=== PATIENT | female | born 1990 | race Caucasian/White ===

== ENCOUNTER 2021-06-18 15:06 | Inpatient (IN) ==
[2021-06-18 16:54] LABS: Appearance Urine Cloudy (Clear); Bacteria Urine Automated Negative (Negative); Bilirubin Urine Negative (Negative); Blood Urine Negative (Negative); Color Urine Dark Yellow; Epithelial Cell Urine Auto >30 /lpf (0-5); Glucose Urine UA Negative (Negative); Ketones Urine 1+ (Negative); Leukocyte Esterase Urine Negative (Negative); Nitrite Urine Negative (Negative); Protein Urine Trace (Negative); Specific Gravity Urine 1.026 (1.000-1.030); Urobilinogen Urine Negative (Negative)
[2021-06-18 17:01] LABS: Basophils # (auto) 0.02 K/uL (0-0.2); Basophils % (auto) 0.2 %; Eosinophils # (auto) 0.17 K/uL (0-0.5); Eosinophils % (auto) 2.1 %; Hematocrit (blood only) 38.1 % (37-47); Hemoglobin 12.7 g/dL (12.0-16.0); Immature Granulocytes # (auto) 0.01 K/uL (0.00-0.02); Immature Granulocytes % (auto) 0.1 %; Lymphocytes # (auto) 1.84 K/uL (1.2-3.4); Lymphocytes % (auto) 22.2 %; Mean Corpuscular Hgb Conc 33.3 g/dL (32-36); Mean Platelet Volume 8.9 fL (7.4-10.4); Monocytes # (auto) 0.65 K/uL (0.11-0.59); Monocytes % (auto) 7.9 %; Neutrophils # (auto) 5.58 K/uL (1.4-6.5); Neutrophils % (auto) 67.5 %; Platelet Count 337 K/uL (130-400); RDW Coefficient of Variation 13.1 % (11.5-14.5); RDW Standard Deviation 45.9 fL (36.4-46.3); Red Blood Count 3.97 M/uL (4.2-5.4); White Blood Count 8.27 K/uL (4.8-10.8)
[2021-06-18 17:10] LABS: Amphetamines+Metham, Urine Neg (Neg); Barbiturates, Urine Neg (Neg); Benzodiazepine, Urine Neg (Neg); Cocaine, Urine Neg (Neg); MDMA (Ecstacy), Urine Neg (Neg); Methadone, Urine Neg (Neg); Opiate, Urine Neg (Neg); Phencyclidine, Urine Neg (Neg)
[2021-06-18 17:19] LABS: Albumin Level 3.8 gm/dl (3.4-5.0); BUN Creatinine Ratio 12.3 (10-20); Calcium 8.8 mg/dl (8.5-10.1); Creatinine Clr Calc Pharmacy 106.6 ml/min; Est GFR (African American) 106.6 ml/min; Est GFR (Non-African American) 91.9 ml/min; Potassium 4.2 mmol/L (3.5-5.1)
[2021-06-18 17:21] LABS: Acetaminophen < 2 ug/ml (10-30); Salicylate < 1.7 mg/dl (2.8-20)
--- NOTE | 2021-06-18 17:23 | Emergency Department Note ---
History of Present Illness General Chief complaint: Mental Health Evaluation Stated complaint: DEPRESSIVE EPISODE, DX'D BIPOLAR Time Seen by Provider: 06/18/21 15:34 Source: patient Mode of arrival: ambulatory Limitations: no limitations History of Present Illness Provider complaint: Mental health evaluation This is a 30-year-old female presents emergency department for mental health evaluation. Patient states she does have a history of bipolar disorder and does take medication as well see outpatient providers. She feels that she has had worsening depression with this recently with wanting to sleep more, lack of energy, anhedonia. She states they have been increasing her medications recently however she does not feel this has been helping. She denies SI or HI. Denies paranoia or hallucinations. Denies any recent injury or illness. 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 Pt seen during a time of high acuity and national emergency pandemic while wearing PPE. Home Medications Medication Instructions Recorded Confirmed Type lurasidone 80 mg tablet (Latuda) 80 mg PO HS 06/18/21 06/18/21 History modafinil 200 mg tablet 200 mg PO QAM 06/18/21 06/18/21 History Allergies Allergy/AdvReac Type Severity Reaction Status Date / Time No Known Allergies Allergy Unverified 06/18/21 17:24 Past Med/Surg History Medical History Bipolar disorder Social History Smoking Status: Never smoker Preferred Language: Albanian Communication Ability: Effective [employer] Required: No Beliefs That Will Affect Care: None Feels Safe at Home: Yes Assistive Devices: None Review of Systems A total of 10 systems reviewed and were otherwise negative All systems reviewed & are unremarkable except as noted in HPI & below Physical Exam Vital Signs Vital Signs - 24 hr 06/18/21 15:06 06/18/21 15:24 Temperature 36.6 C Temperature Source Temporal Artery Scan Pulse Rate 84 Respiratory Rate 16 18 Respiratory Effort / Characteristics Non-Labored Respiratory Depth Normal Normal Respiratory Pattern Regular Blood Pressure 117/74 Blood Pressure Mean 88 Pulse Oximetry 98 Oxygen Delivery Method Room Air Sepsis Recent Fever Within 48 Hours No Sepsis New/Unexplained Change in Mental Status No Sepsis Action Taken by Nursing No Action Required GENERAL: alert, well appearing, well nourished, no distress, non-toxic EYE EXAM: normal conjunctiva, PERRL and EOM's grossly intact OROPHARYNX: no exudate, no erythema, lips, buccal mucosa, and tongue normal and mucous membranes are moist NECK: supple, no nuchal rigidity, no adenopathy, non-tender LUNGS: Clear to auscultation. Normal chest wall mechanics, no w/r/r HEART: no murmurs, S1 normal and S2 normal ABDOMEN: abdomen soft, non-tender, normo-active bowel sounds, no masses, no re bound or guarding. BACK: Back is symmetrical on inspection and there is no deformity, no midline te nderness, no CVA tenderness. SKIN: no rashes and no bruising UPPER EXTREMITIES: upper extremities are grossly normal. FROM, nml pulses b/l. LOWER EXTREMITIES: No pitting edema. FROM, nml pulses b/l. NEURO EXAM: Normal sensorium, cranial nerves II-XII grossly intact, normal speech, no gross weakness of arms, no gross weakness of legs. Gross sensation intact. Course Course 1919: Patient referred to [facility] who came and saw the patient. Patient agreement with plan for inpatient treatment. 201 signed. Administered Medications Hydroxyzine HCl (Hydroxyzine Hcl 25 Mg Tab) 50 mg PO HSZ PRN PRN Reason: Insomnia Stop: 07/18/21 18:28 Last Admin: 06/18/21 22:01 Dose: 50 mg Documented by: [id number] Lurasidone HCl (Lurasidone Hcl 40 Mg Tab) 80 mg PO DAILY YANG Stop: 07/18/21 19:29 Last Admin: 06/18/21 20:16 Dose: 80 mg Documented by: [id number] Discontinued Medications Influenza Virus Vaccine Quadrival (Fluarix Quadrivalent 0.5 Ml Syr) 0.5 ml IM .ONCE ONE Stop: 06/18/21 21:08 Last Admin: 06/18/21 21:56 Dose: 0.5 ml Documented by: [id number] Lorazepam (Lorazepam 0.5 Mg Tab) 0.5 mg PO NOW STA Stop: 06/18/21 17:45 Last Admin: 06/18/21 17:48 Dose: 0.5 mg Documented by: [id number] Medical Decision Making Differential Diagnosis Differential diagnoses considered include mood disorder, infection, hypoglycemia, electrolyte abnormalities, cardiac sources, intracerebral event, toxicologic, neurologic, as well as others. Medical Records Attestation: I reviewed the patient's medical records. Home Medications Current Medication List: was personally reviewed by me Laboratory Data Attestation: I reviewed the patient's lab results. Result diagrams: 06/18/21 16:50 06/18/21 16:50 Lab Results 06/18/21 06/18/21 06/18/21 Range/Units 16:37 16:40 16:40 WBC (4.8-10.8) K/uL RBC (4.2-5.4) M/uL Hgb (12.0-16.0) g/dL Hct (37-47) % MCV (80-100) fL MCH (25-34) pg MCHC (32-36) g/dL RDW Std Deviation (36.4-46.3) fL RDW Coeff of Ina (11.5-14.5) % Plt Count (130-400) K/uL MPV (7.4-10.4) fL Immature Gran % (Auto) % Neut % (Auto) % Lymph % (Auto) % Douglas % (Auto) % Eos % (Auto) % Baso % (Auto) % Neut # (Auto) (1.4-6.5) K/uL Lymph # (Auto) (1.2-3.4) K/uL Douglas # (Auto) (0.11-0.59) K/uL Eos # (Auto) (0-0.5) K/uL Baso # (Auto) (0-0.2) K/uL Immature Gran # (Auto) (0.00-0.02) K/uL Sodium (136-145) mmol/L Potassium (3.5-5.1) mmol/L Chloride (98-107) mmol/L Carbon Dioxide (21-32) mmol/L Anion Gap (3-11) BUN (7-18) mg/dl Creatinine (0.6-1.2) mg/dl Est Cr Clr Drug Dosing ml/min Est GFR ( Amer) ml/min Est GFR (Non-Af Amer) ml/min BUN/Creatinine Ratio (10-20) Glucose (70-99) mg/dl Calcium (8.5-10.1) mg/dl Total Bilirubin (0.2-1) mg/dl AST (15-37) U/L ALT (12-78) Alkaline Phosphatase (45-117) U/L Total Protein (6.4-8.2) gm/dl Albumin (3.4-5.0) gm/dl Globulin (2.5-4.0) gm/dl Albumin/Globulin Ratio (0.9-2) TSH (0.300-4.500) uIu/ml HCG, Qual (Negative) Urine Color Dark Yellow Urine Appearance Cloudy A (Clear) Urine pH 6.0 (4.5-7.5) Ur Specific [place] 1.026 (1.000-1.030) Urine Protein Trace H (Negative) Urine Glucose (UA) Negative (Negative) Urine Ketones 1+ H (Negative) Urine Blood Negative (Negative) Urine Nitrite Negative (Negative) Urine Bilirubin Negative (Negative) Urine Urobilinogen Negative (Negative) Ur Leukocyte Esterase Negative (Negative) Urine WBC (Auto) 1-5 (0-5) /hpf Urine RBC (Auto) 5-10 H (0-4) /hpf U Hyaline Cast (Auto) 5-10 H (0-5) /lpf U Epithel Cells (Auto) >30 H (0-5) /lpf Urine Bacteria (Auto) Negative (Negative) Salicylates (2.8-20) mg/dl Urine Opiates Screen Neg (Neg) Ur Methadone, Qual Neg (Neg) Acetaminophen (10-30) ug/ml Urine Barbiturates Neg (Neg) Ur Phencyclidine (PCP) Neg (Neg) U Amphetamin/Meth Scrn Neg (Neg) MDMA (Ecstasy) Screen Neg (Neg) U Benzodiazepines Scrn Neg (Neg) Ur Cocaine Metabolite Neg (Neg) U Marijuana (THC) Screen Neg (Neg) Ethyl Alcohol mg/dL (0-3) mg/dl SARS-CoV-2, RNA, NAAT NEGATIVE (NEGATIVE) 06/18/21 06/18/21 06/18/21 Range/Units 16:50 16:50 16:50 WBC 8.27 (4.8-10.8) K/uL RBC 3.97 L (4.2-5.4) M/uL Hgb 12.7 (12.0-16.0) g/dL Hct 38.1 (37-47) % MCV 96.0 (80-100) fL MCH 32.0 (25-34) pg MCHC 33.3 (32-36) g/dL RDW Std Deviation 45.9 (36.4-46.3) fL RDW Coeff of Ina 13.1 (11.5-14.5) % Plt Count 337 (130-400) K/uL MPV 8.9 (7.4-10.4) fL Immature Gran % (Auto) 0.1 % Neut % (Auto) 67.5 % Lymph % (Auto) 22.2 % Douglas % (Auto) 7.9 % Eos % (Auto) 2.1 % Baso % (Auto) 0.2 % Neut # (Auto) 5.58 (1.4-6.5) K/uL Lymph # (Auto) 1.84 (1.2-3.4) K/uL Douglas # (Auto) 0.65 H (0.11-0.59) K/uL Eos # (Auto) 0.17 (0-0.5) K/uL Baso # (Auto) 0.02 (0-0.2) K/uL Immature Gran # (Auto) 0.01 (0.00-0.02) K/uL Sodium 139 (136-145) mmol/L Potassium 4.2 (3.5-5.1) mmol/L Chloride 110 H (98-107) mmol/L Carbon Dioxide 26 (21-32) mmol/L Anion Gap 3.0 (3-11) BUN 10 (7-18) mg/dl Creatinine 0.85 (0.6-1.2) mg/dl Est Cr Clr Drug Dosing 106.6 ml/min Est GFR ( Amer) 106.6 ml/min Est GFR (Non-Af Amer) 91.9 ml/min BUN/Creatinine Ratio 12.3 (10-20) Glucose 87 (70-99) mg/dl Calcium 8.8 (8.5-10.1) mg/dl Total Bilirubin 0.3 (0.2-1) mg/dl AST 8 L (15-37) U/L ALT 22 (12-78) Alkaline Phosphatase 51 (45-117) U/L Total Protein 7.3 (6.4-8.2) gm/dl Albumin 3.8 (3.4-5.0) gm/dl Globulin 3.5 (2.5-4.0) gm/dl Albumin/Globulin Ratio 1.1 (0.9-2) TSH 0.484 (0.300-4.500) uIu/ml HCG, Qual (Negative) Urine Color Urine Appearance (Clear) Urine pH (4.5-7.5) Ur Specific [place] (1.000-1.030) Urine Protein (Negative) Urine Glucose (UA) (Negative) Urine Ketones (Negative) Urine Blood (Negative) Urine Nitrite (Negative) Urine Bilirubin (Negative) Urine Urobilinogen (Negative) Ur Leukocyte Esterase (Negative) Urine WBC (Auto) (0-5) /hpf Urine RBC (Auto) (0-4) /hpf U Hyaline Cast (Auto) (0-5) /lpf U Epithel Cells (Auto) (0-5) /lpf Urine Bacteria (Auto) (Negative) Salicylates < 1.7 L (2.8-20) mg/dl Urine Opiates Screen (Neg) Ur Methadone, Qual (Neg) Acetaminophen < 2 L (10-30) ug/ml Urine Barbiturates (Neg) Ur Phencyclidine (PCP) (Neg) U Amphetamin/Meth Scrn (Neg) MDMA (Ecstasy) Screen (Neg) U Benzodiazepines Scrn (Neg) Ur Cocaine Metabolite (Neg) U Marijuana (THC) Screen (Neg) Ethyl Alcohol mg/dL (0-3) mg/dl SARS-CoV-2, RNA, NAAT (NEGATIVE) 06/18/21 06/18/21 Range/Units 16:50 16:50 WBC (4.8-10.8) K/uL RBC (4.2-5.4) M/uL Hgb (12.0-16.0) g/dL Hct (37-47) % MCV (80-100) fL MCH (25-34) pg MCHC (32-36) g/dL RDW Std Deviation (36.4-46.3) fL RDW Coeff of Ina (11.5-14.5) % Plt Count (130-400) K/uL MPV (7.4-10.4) fL Immature Gran % (Auto) % Neut % (Auto) % Lymph % (Auto) % Douglas % (Auto) % Eos % (Auto) % Baso % (Auto) % Neut # (Auto) (1.4-6.5) K/uL Lymph # (Auto) (1.2-3.4) K/uL Douglas # (Auto) (0.11-0.59) K/uL Eos # (Auto) (0-0.5) K/uL Baso # (Auto) (0-0.2) K/uL Immature Gran # (Auto) (0.00-0.02) K/uL Sodium (136-145) mmol/L Potassium (3.5-5.1) mmol/L Chloride (98-107) mmol/L Carbon Dioxide (21-32) mmol/L Anion Gap (3-11) BUN (7-18) mg/dl Creatinine (0.6-1.2) mg/dl Est Cr Clr Drug Dosing ml/min Est GFR ( Amer) ml/min Est GFR (Non-Af Amer) ml/min BUN/Creatinine Ratio (10-20) Glucose (70-99) mg/dl Calcium (8.5-10.1) mg/dl Total Bilirubin (0.2-1) mg/dl AST (15-37) U/L ALT (12-78) Alkaline Phosphatase (45-117) U/L Total Protein (6.4-8.2) gm/dl Albumin (3.4-5.0) gm/dl Globulin (2.5-4.0) gm/dl Albumin/Globulin Ratio (0.9-2) TSH (0.300-4.500) uIu/ml HCG, Qual Negative (Negative) Urine Color Urine Appearance (Clear) Urine pH (4.5-7.5) Ur Specific [place] (1.000-1.030) Urine Protein (Negative) Urine Glucose (UA) (Negative) Urine Ketones (Negative) Urine Blood (Negative) Urine Nitrite (Negative) Urine Bilirubin (Negative) Urine Urobilinogen (Negative) Ur Leukocyte Esterase (Negative) Urine WBC (Auto) (0-5) /hpf Urine RBC (Auto) (0-4) /hpf U Hyaline Cast (Auto) (0-5) /lpf U Epithel Cells (Auto) (0-5) /lpf Urine Bacteria (Auto) (Negative) Salicylates (2.8-20) mg/dl Urine Opiates Screen (Neg) Ur Methadone, Qual (Neg) Acetaminophen (10-30) ug/ml Urine Barbiturates (Neg) Ur Phencyclidine (PCP) (Neg) U Amphetamin/Meth Scrn (Neg) MDMA (Ecstasy) Screen (Neg) U Benzodiazepines Scrn (Neg) Ur Cocaine Metabolite (Neg) U Marijuana (THC) Screen (Neg) Ethyl Alcohol mg/dL < 3.0 (0-3) mg/dl SARS-CoV-2, RNA, NAAT (NEGATIVE) MDM Narrative This is a well-appearing 30-year-old female with a history of bipolar disorder who presents due to increased depressive symptoms. Patient denies SI or HI, however feels she is failing outpatient treatment as her medications have been adjusted recently and she does see a therapist on a regular basis. 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 Patient wishing for inpatient treatment at this time. Patient seen and evaluated by case management and referred to [facility] They did come and evaluate the patient and she was accepted there. 201 signed by me. Patient's labs and urinalysis are reassuring. Patient had no other concerns for physical complaints or injury. Impression & Plan Depression, Bipolar disorder Discharge Plan Visit Data Chief Complaint: Mental Health Evaluation Stated Complaint: DEPRESSIVE EPISODE, DX'D BIPOLAR ED Provider: Zita Loomis Discharge Problem: Depression, Bipolar disorder Patient Disposition: Admitted As Inpatient Condition: Good Discharge Instructions Interventions: ED Discharge Assessment Last Done: 06/18/21 19:31
[2021-06-18 17:30] LABS: Albumin Globulin Ratio 1.1 (0.9-2); Bilirubin,Total 0.3 mg/dl (0.2-1); Globulin 3.5 gm/dl (2.5-4.0); Thyroid Stimulating Hormone 0.484 uIu/ml (0.300-4.500); Total Protein 7.3 gm/dl (6.4-8.2)
[2021-06-18 17:36] LABS: Pregnancy Test, Serum Negative (Negative)
[2021-06-18] MEDS ORDERED: LORazepam 0.5 MG TAB PO STA (17:44)
[2021-06-18] MEDS ORDERED: hydrOXYzine HCl 25 MG TAB PO PRN (18:29)
[2021-06-18] MEDS ORDERED: MAGNESIUM HYDROXIDE SUSP 30 ML UDC PO PRN (18:29)
[2021-06-18] MEDS ORDERED: SODIUM CHLORIDE 0.65% NA SOLN 45 ML (OCEAN) PRN (18:29)
[2021-06-18] MEDS ORDERED: BISMUTH SUBSALICYLATE LIQD 236 ML PO PRN (18:29)
[2021-06-18] MEDS ORDERED: ALUMINUM/MAGNESIUM SUSP 30 ML UDC PO PRN (18:29)
[2021-06-18] MEDS ORDERED: ACETAMINOPHEN 325 MG TAB PO PRN (18:29)
[2021-06-18] MEDS: LURASIDONE HCL 40 MG TAB PO SCH (20:16)
[2021-06-18] MEDS ORDERED: FLUARIX QUADRIVALENT 0.5 ML SYR IM ONE (21:07)
[2021-06-18] MEDS: hydrOXYzine HCl 25 MG TAB PO PRN (22:01)
[2021-06-19] MEDS ORDERED: FLUoxetine HCL 10 MG CAP PO STA (10:47)
[2021-06-19] MEDS: LURASIDONE HCL 40 MG TAB PO SCH ×2 (11:02→21:04)
[2021-06-19] MEDS: modafiniL 100 MG TAB PO SCH (11:31)
--- NOTE | 2021-06-19 15:21 | History & Physical ---
Date of Service June 19, 2021 Impression / Recommendations Impression 30 yo female with a history of anxiety and depression, previously diagnosed with borderline personality disorder as well as bipolar disorder, does not endorse periods of manish but some increase in reactivity/impulsivity alternating with obsessive thoughts and preoccupation, for example on SI but also idea that she will be homeless if "can't keep it together". (1) Bipolar disorder: Active/Remission status: currently active Current bipolar episode type: depressed Current episode severity: moderate Qualified Code(s): F31.32 - Bipolar disorder, current episode depressed, moderate (2) Generalized anxiety disorder: The patient was admitted to the [facility] ([facility] health unit) on q15 min checks (behavioral with suicide precautions) for safety. The patient will participate in group, recreational, and milieu therapies and will be offered additional individual and family sessions as clinically appropriate. Risks/benefits/alternatives reviewed re: her current medications. Patient aware of need for monitoring for TD and metabolic issues with Latuda. Fasting labs for the am. Will continue Modafinil for now, aware is off label medication but need to coordinate with outpatient provider and determine tolerability of Prozac. Reviewed that SSRI are generally weight neutral and chosen as her primary complaints are low energy. Given her level of anxiety and obsessiveness concern that Wellbutrin may be too activating. Patient asked several questions about 72 hour notice and agrees to continued hospitalization at this time. 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 Chief Complaint "yeah I've just been more depressed and not functioning well, my providers thought I should come in". History of Present Illness Lyric denies having a specific plan or intent to harm herself but feels that her anxiety gets obsessive at times and she has had more recent passive wish. She noticed similar but not as severe symptoms last fall, "like it's a pattern". He hasn't been able to focus and is sleeping more/severely fatigued despite taking Provigil. She denies a history of narcolepsy and states that she takes medication for symptoms related to depression. When she first started the medication she felt she functioned well and was able to focus. She denies any history of ADHD diagnosis or significant concerns in undergrad. She related some history of self injurious behavior and recently made some scratches to her abdomen with a pocket knife. She also reports poor appetite related to stress with 60 lbs "not particularly intentional" weight loss since starting graduate school last year. She admits this could be related to side effects of Provigil. She was previously diagnosed with "C-PTSD", generalized anxiety, and borderline personality disorder prior to entering treatment with [facility]. Her Latuda dose was increased on 06/15 so unsure if working yet. She also notes taking Accutane early in 2020. Otherwise, has some amblivalence continuing hospitalization given time of the semester and how she was reportedly treated in the ED stating that she was unaware she couldn't have her phone until after she signed in and that her meal tray was delayed as misrepresented she had eaten in the ED. Past Psychiatric History Current Psychiatric Diagnosis: Bipolar Disorder Outpatient Services: currently Dr. Rosales, previously 2-3 therapists prior to grad student here [facility] for med management Previous Psych Admissions: none Do You Have Access To A Gun?: No History of Previous Suicide Attempt: No Past Medication Trials: Zoloft prior to Effexor XR, then lamictal (acne) prior to Latuda. Allergies Allergy/AdvReac Type Severity Reaction Status Date / Time No Known Allergies Allergy Unverified 06/18/21 17:24 Home Medications Medication Instructions Recorded Confirmed Type lurasidone 80 mg tablet (Latuda) 80 mg PO HS 06/18/21 06/18/21 History modafinil 200 mg tablet 100 mg PO QAM 06/18/21 06/19/21 History Family History Family Mental Health History Comment: mom and brother (mom depression, brother bipolar) Alcohol History Hx of Alcohol Use Over the Past 12 Months: No AUDIT Total Score: 0 Smoking Use Have You Smoked or Used Tobacco Products in the Last 30 Days: No Smoking Status: Never smoker Substance History Hx of Prescription Med Misuse Over the Past 12 Months: No Hx of Over the Counter Med Misuse Over the Past 12 Months: No Hx of Inhalent Misuse Over the Past 12 Months: No Hx of Organic Substance Use Over the Past 12 Months: No Hx of Illegal Substances/Street Drug Use Over Past 12 Months: No Problems as a Result of Past Substance Use: None Identified Personal History Living Arrangements: Apartment Childhood: states that mother is alive, relationship is "fine over the phone", brother is 45 years old, parents 2nd marriage and father had other children who were adopted that she doesn't know. 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) Marital Status: Single Number Of Children: 0 Beliefs That Will Affect Care: None Current Legal Problems: No Additional Comments: did not elaborate on past trauma Patient History Medical History Bipolar disorder Social History Smoking Status: Never smoker Preferred Language: Mozambican Communication Ability: Effective Watchstander Required: No Beliefs That Will Affect Care: None Feels Safe at Home: Yes Assistive Devices: None Review of Systems Review of Systems: All systems reviewed & are unremarkable except as noted in HPI & below Physical Exam Psychiatric: Orientation: alert and oriented x 3 Apperance: appropriately dressed and appropriately groomed Eye Contact: good eye contact Motor Behavior: no abnormal motor movements Speech: normal rate/rhythm/volume of s peech Affect: + depressed affect Mood: + depressed mood Thought Process: goal directed thought process Thought Content: reality based without delusions Suicidal Thoughts: denies suicidal plan and denies suicidal intent; + reports suicidal thoughts (passive, intermittent) Homicidal Thoughts: denies homicidal thoughts Hallucinations: no auditory hallucinations and no visual hallucinations Cognition: attention grossly intact and language grossly intact Estimated Intelligence: consistent with education level Insight: + limited insight Judgement: + limited judgement Vital Signs (Past 24 Hours): Last Vital Signs Temp 36.6 C 06/19/21 06:51 Pulse 93 H 06/19/21 06:52 Resp 16 06/19/21 06:51 BP 111/76 06/19/21 06:52 Pulse Ox 98 06/18/21 15:24 Exam Statement: A physical exam was performed in the ED by Dr. Loomis for the purposes of medical clearance. I accept that physical as correct and adequate for the purposes of the inpatient physical exam. Results & Data ([facility]) Laboratory Results Laboratory Results - last 24 hr 06/18/21 06/18/21 06/18/21 16:37 16:40 16:40 WBC RBC Hgb Hct MCV MCH MCHC RDW Std Deviation RDW Coeff of Ina Plt Count MPV Immature Gran % (Auto) Neut % (Auto) Lymph % (Auto) [place] % (Auto) Eos % (Auto) Baso % (Auto) Neut # (Auto) Lymph # (Auto) [place] # (Auto) Eos # (Auto) Baso # (Auto) Immature Gran # (Auto) Sodium Potassium Chloride Carbon Dioxide Anion Gap BUN Creatinine Est Cr Clr Drug Dosing Est GFR ( Amer) Est GFR (Non-Af Amer) BUN/Creatinine Ratio Glucose Calcium Total Bilirubin AST ALT Alkaline Phosphatase Total Protein Albumin Globulin Albumin/Globulin Ratio TSH HCG, Qual Urine Color Dark Yellow Urine Appearance Cloudy A Urine pH 6.0 Ur Specific [place] 1.026 Urine Protein Trace H Urine Glucose (UA) Negative Urine Ketones 1+ H Urine Blood Negative Urine Nitrite Negative Urine Bilirubin Negative Urine Urobilinogen Negative Ur Leukocyte Esterase Negative Urine WBC (Auto) 1-5 Urine RBC (Auto) 5-10 H U Hyaline Cast (Auto) 5-10 H U Epithel Cells (Auto) >30 H Urine Bacteria (Auto) Negative Salicylates Urine Opiates Screen Neg Ur Methadone, Qual Neg Acetaminophen Urine Barbiturates Neg Ur Phencyclidine (PCP) Neg U Amphetamin/Meth Scrn Neg MDMA (Ecstasy) Screen Neg U Benzodiazepines Scrn Neg Ur Cocaine Metabolite Neg U Marijuana (THC) Screen Neg Ethyl Alcohol mg/dL SARS-CoV-2, RNA, NAAT NEGATIVE 06/18/21 06/18/21 06/18/21 16:50 16:50 16:50 WBC 8.27 RBC 3.97 L Hgb 12.7 Hct 38.1 MCV 96.0 MCH 32.0 MCHC 33.3 RDW Std Deviation 45.9 RDW Coeff of Nia 13.1 Plt Count 337 MPV 8.9 Immature Gran % (Auto) 0.1 Neut % (Auto) 67.5 Lymph % (Auto) 22.2 [place] % (Auto) 7.9 Eos % (Auto) 2.1 Baso % (Auto) 0.2 Neut # (Auto) 5.58 Lymph # (Auto) 1.84 [place] # (Auto) 0.65 H Eos # (Auto) 0.17 Baso # (Auto) 0.02 Immature Gran # (Auto) 0.01 Sodium 139 Potassium 4.2 Chloride 110 H Carbon Dioxide 26 Anion Gap 3.0 BUN 10 Creatinine 0.85 Est Cr Clr Drug Dosing 106.6 Est GFR ( Amer) 106.6 Est GFR (Non-Af Amer) 91.9 BUN/Creatinine Ratio 12.3 Glucose 87 Calcium 8.8 Total Bilirubin 0.3 AST 8 L ALT 22 Alkaline Phosphatase 51 Total Protein 7.3 Albumin 3.8 Globulin 3.5 Albumin/Globulin Ratio 1.1 TSH 0.484 HCG, Qual Urine Color Urine Appearance Urine pH Ur Specific [place] Urine Protein Urine Glucose (UA) Urine Ketones Urine Blood Urine Nitrite Urine Bilirubin Urine Urobilinogen Ur Leukocyte Esterase Urine WBC (Auto) Urine RBC (Auto) U Hyaline Cast (Auto) U Epithel Cells (Auto) Urine Bacteria (Auto) Salicylates < 1.7 L Urine Opiates Screen Ur Methadone, Qual Acetaminophen < 2 L Urine Barbiturates Ur Phencyclidine (PCP) U Amphetamin/Meth Scrn MDMA (Ecstasy) Screen U Benzodiazepines Scrn Ur Cocaine Metabolite U Marijuana (THC) Screen Ethyl Alcohol mg/dL SARS-CoV-2, RNA, NAAT 06/18/21 06/18/21 16:50 16:50 WBC RBC Hgb Hct MCV MCH MCHC RDW Std Deviation RDW Coeff of Ina Plt Count MPV Immature Gran % (Auto) Neut % (Auto) Lymph % (Auto) [place] % (Auto) Eos % (Auto) Baso % (Auto) Neut # (Auto) Lymph # (Auto) [place] # (Auto) Eos # (Auto) Baso # (Auto) Immature Gran # (Auto) Sodium Potassium Chloride Carbon Dioxide Anion Gap BUN Creatinine Est Cr Clr Drug Dosing Est GFR ( Amer) Est GFR (Non-Af Amer) BUN/Creatinine Ratio Glucose Calcium Total Bilirubin AST ALT Alkaline Phosphatase Total Protein Albumin Globulin Albumin/Globulin Ratio TSH HCG, Qual Negative Urine Color Urine Appearance Urine pH Ur Specific [place] Urine Protein Urine Glucose (UA) Urine Ketones Urine Blood Urine Nitrite Urine Bilirubin Urine Urobilinogen Ur Leukocyte Esterase Urine WBC (Auto) Urine RBC (Auto) U Hyaline Cast (Auto) U Epithel Cells (Auto) Urine Bacteria (Auto) Salicylates Urine Opiates Screen Ur Methadone, Qual Acetaminophen Urine Barbiturates Ur Phencyclidine (PCP) U Amphetamin/Meth Scrn MDMA (Ecstasy) Screen U Benzodiazepines Scrn Ur Cocaine Metabolite U Marijuana (THC) Screen Ethyl Alcohol mg/dL < 3.0 SARS-CoV-2, RNA, NAAT Current Inpatient Medications Current Inpatient Medications: Current Inpatient Medications Acetaminophen (Acetaminophen 325 Mg Tab) 650 mg PO Q4H PRN PRN Reason: Headache or Minor Fever Stop: 07/18/21 18:28 Al Hydrox/Mg Hydrox/Simethicone (Aluminum/Magnesium Susp 30 Ml Udc) 30 ml PO Q4H PRN PRN Reason: GI Upset Stop: 07/18/21 18:28 Bismuth Subsalicylate (Bismuth Subsalicylate Liqd 236 Ml) 15 ml PO PRN PRN PRN Reason: Loose Stool Stop: 07/18/21 18:28 Fluoxetine HCl (Fluoxetine Hcl 20 Mg Cap) 20 mg PO QAM [facility] Stop: 07/20/21 08:59 Hydroxyzine HCl (Hydroxyzine Hcl 25 Mg Tab) 50 mg PO HSZ PRN PRN Reason: Insomnia Stop: 07/18/21 18:28 Last Admin: 06/18/21 22:01 Dose: 50 mg Documented by: Hydroxyzine HCl (Hydroxyzine Hcl 25 Mg Tab) 25 mg PO Q4H PRN PRN Reason: Anxiety Stop: 07/18/21 18:28 Lurasidone HCl (Lurasidone Hcl 40 Mg Tab) 80 mg PO HS YANG Stop: 07/19/21 21:59 Magnesium Hydroxide (Magnesium Hydroxide Susp 30 Ml Udc) 30 ml PO DAILY PRN PRN Reason: Constipation Stop: 07/18/21 18:28 Modafinil (Modafinil 100 Mg Tab) [facility] [place] Stop: 07/19/21 10:59 Last Admin: 06/19/21 11:31 Dose: 100 mg Documented by: Sodium Chloride (Sodium Chloride 0.65% Na Soln 45 Ml ([place])) 1 - 2 sprays NA PRN PRN PRN Reason: Nasal Dryness/Congestion Stop: 07/18/21 18:28
[2021-06-19] MEDS: hydrOXYzine HCl 25 MG TAB PO PRN (21:03)
[2021-06-20] MEDS: FLUoxetine HCL 20 MG CAP PO SCH (09:31)
[2021-06-20] MEDS: modafiniL 100 MG TAB PO SCH (09:31)
[2021-06-20 10:15] LABS: Glucose Fasting 81 mg/dl (70-99)
[2021-06-20 10:21] LABS: Chol HDL Ratio 2; Cholesterol 141 mg/dl (0-200); HDL Cholesterol 59 mg/dl; LDL Cholesterol Calculated 66 mg/dl; Triglycerides 82 mg/dl (0-150); VLDL Cholesterol 16 mg/dl
--- NOTE | 2021-06-20 13:11 | Psychiatric Progress Note ---
Date of Service June 20, 2021 Impression / Recommendations Impression 30 yo female with a history of anxiety and depression, previously diagnosed with borderline personality disorder as well as bipolar disorder, does not endorse periods of manish but some increase in reactivity/impulsivity alternating with obsessive thoughts and preoccupation, for example on SI but also idea that she will be homeless if "can't keep it together". 06/20/21: improving (1) Bipolar disorder: (2) Generalized anxiety disorder: 06/20/21: Continue Prozac trial 20 mg. discussed possible augmentation with light therapy and vitamin D. Reviewed fasting labs. 06/19/21: The patient was admitted to the [facility] ([facility] mental health unit) on q15 min checks (behavioral with suicide precautions) for safety. The patient will participate in group, recreational, and milieu therapies and will be offered additional individual and family sessions as clinically appropriate. Risks/benefits/alternatives reviewed re: her current medications. Patient aware of need for monitoring for TD and metabolic issues with Latuda. Fasting labs for the am. Will continue Modafinil for now, aware is off label medication but need to coordinate with outpatient provider and determine tolerability of Prozac. Reviewed that SSRI are generally weight neutral and chosen as her primary complaints are low energy. Given her level of anxiety and obsessiveness concern that Wellbutrin may be too activating. Patient asked several questions about 72 hour notice and agrees to continued hospitalization at this time. 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 Chief Complaint "maybe it's just placebo effect but I feel like I feel some better". Review of Systems Sleep Information Total Hours of Sleep: 7.25 Meal Information Percent Meal Consumed - Breakfast: 100 Percent Meal Consumed - Lunch: 100 Percent Meal Consumed - Dinner: 100 Subjective Subjective Patient was seen & assessed and interval progress reviewed with treatment team. Remains focussed on discharge, did sign 72 hour notice but is agreeable to remain hospitalized through today into tomorrow to allow for ongoing monitoring, coordination of care and a family meeting with her best friend locally. Reports that suicidal thoughts have resolved and she doesn't feel as tired. Still some obsessive thoughts about loss of control. Physical Exam Psychiatric Orientation: alert and oriented x 3 Apperance: appropriately dressed and appropriately groomed Eye Contact: good eye contact Motor Behavior: no abnormal motor movements Speech: normal rate/rhythm/volume of speech Affect: + depressed affect Mood: + depressed mood Thought Process: goal directed thought process Thought Content: reality based without delusions Suicidal Thoughts: denies suicidal thoughts, denies suicidal plan and denies suicidal intent Homicidal Thoughts: denies homicidal thoughts Hallucinations: no auditory hallucinations and no visual hallucinations Cognition: attention grossly intact and language grossly intact Estimated Intelligence: consistent with education level Insight: + limited insight Judgement: + limited judgement Vital Signs (Past 24 Hours) Last Vital Signs Temp 36.9 C 06/20/21 06:46 Pulse 92 H 06/20/21 06:47 Resp 16 06/20/21 06:46 BP 116/71 06/20/21 06:47 Pulse Ox 98 06/18/21 15:24 Results & Data ([facility]) Laboratory Results Laboratory Results - last 24 hr 06/20/21 08:58 Fasting Glucose 81 Triglycerides 82 Cholesterol 141 LDL Cholesterol, Calc 66 VLDL Cholesterol, Calc 16 HDL Cholesterol 59 Cholesterol/HDL Ratio 2 Current Inpatient Medications Current Inpatient Medications: Current Inpatient Medications Acetaminophen (Acetaminophen 325 Mg Tab) 650 mg PO Q4H PRN PRN Reason: Headache or Minor Fever Stop: 07/18/21 18:28 Al Hydrox/Mg Hydrox/Simethicone (Aluminum/Magnesium Susp 30 Ml Udc) 30 ml PO Q4H PRN PRN Reason: GI Upset Stop: 07/18/21 18:28 Bismuth Subsalicylate (Bismuth Subsalicylate Liqd 236 Ml) 15 ml PO PRN PRN PRN Reason: Loose Stool Stop: 07/18/21 18:28 Fluoxetine HCl (Fluoxetine Hcl 20 Mg Cap) 20 mg PO QAM YANG Stop: 07/20/21 08:59 Last Admin: 06/20/21 09:31 Dose: 20 mg Documented by: Hydroxyzine HCl (Hydroxyzine Hcl 25 Mg Tab) 50 mg PO HSZ PRN PRN Reason: Insomnia Stop: 07/18/21 18:28 Last Admin: 06/19/21 21:03 Dose: 50 mg Documented by: Hydroxyzine HCl (Hydroxyzine Hcl 25 Mg Tab) 25 mg PO Q4H PRN PRN Reason: Anxiety Stop: 07/18/21 18:28 Lurasidone HCl (Lurasidone Hcl 40 Mg Tab) 80 mg PO HS YANG Stop: 07/19/21 21:59 Last Admin: 06/19/21 21:04 Dose: 80 mg Documented by: Magnesium Hydroxide (Magnesium Hydroxide Susp 30 Ml Udc) 30 ml PO DAILY PRN PRN Reason: Constipation Stop: 07/18/21 18:28 Modafinil (Modafinil 100 Mg Tab) 100 mg PO QAM YANG Stop: 07/19/21 10:59 Last Admin: 06/20/21 09:31 Dose: 100 mg Documented by: Sodium Chloride (Sodium Chloride 0.65% Na Soln 45 Ml ([place])) 1 - 2 sprays NA PRN PRN PRN Reason: Nasal Dryness/Congestion Stop: 07/18/21 18:28 Mental Health & Subst Abuse Tx Psychiatrist [facility] Date of Appointment with Psychiatrist: 06/23/21 Time of Appointment with Psychiatrist: 2:30pm Psychiatric Appointment Comment: via phone Therapist Name of Therapist: Bobby Eaton- Adriana Rosales Therapist's Date of Therapist Appointment: 06/24/21 Time of Therapist Appointment: 4pm Therapy Appointment Comment: [address], [address], [place] [address] Embedded Software Programmer Name of Embedded Software Programmer: None Post Discharge Appointments Primary Care Physician Name Of Family Doctor: RUPERTO Caro [facility] Date of Appointment with PCP: 06/29/21 Time of Appointment with PCP: 10am [facility] Information Discharge Discharge Address: [facility] [place] [address] (1) Bipolar disorder Active/Remission status: currently active Current bipolar episode type: d epressed Current episode severity: moderate Qualified Code(s): F31.32 - Bipolar disorder, current episode depressed, moderate
[2021-06-20] MEDS: LURASIDONE HCL 40 MG TAB PO SCH (21:10)
[2021-06-20] MEDS: hydrOXYzine HCl 25 MG TAB PO PRN (21:13)
[2021-06-21] MEDS: modafiniL 100 MG TAB PO SCH (08:52)
[2021-06-21] MEDS: FLUoxetine HCL 20 MG CAP PO SCH (08:52)
--- NOTE | 2021-06-21 09:48 | Discharge Summary ---
Date of Service June 21, 2021 History of Present Illness Isa denies having a specific plan or intent to harm herself but feels that her anxiety gets obsessive at times and she has had more recent passive wish. She noticed similar but not as severe symptoms last fall, "like it's a pattern". He hasn't been able to focus and is sleeping more/severely fatigued despite taking Provigil. She denies a history of narcolepsy and states that she takes medication for symptoms related to depression. When she first started the medication she felt she functioned well and was able to focus. She denies any history of ADHD diagnosis or significant concerns in undergrad. She related some history of self injurious behavior and recently made some scratches to her abdomen with a pocket knife. She also reports poor appetite related to stress with 60 lbs "not particularly intentional" weight loss since starting graduate school last year. She admits this could be related to side effects of Provigil. She was previously diagnosed with "C-PTSD", generalized anxiety, and borderline personality disorder prior to entering treatment with [facility]. Her Latuda dose was increased on 06/15 so unsure if working yet. She also notes taking Accutane early in 2020. Otherwise, has some amblivalence continuing hospitalization given time of the semester and how she was reportedly treated in the ED stating that she was unaware she couldn't have her phone until after she signed in and that her meal tray was delayed as misrepresented she had eaten in the ED. Physical Exam Psychiatric See admission H&P and DOD summary. Vital Signs (Past 24 Hours) Last Vital Signs Temp 37 C 06/21/21 06:44 Pulse 93 H 06/21/21 06:45 Resp 16 06/21/21 06:44 BP 105/69 06/21/21 06:45 Pulse Ox 98 06/18/21 15:24 Principal Diagnosis bipolar disorder Psychiatric Data See daily stay summary. In short, safety was maintained and the patient was cooperative with care. Medication changes included addition of Prozac to target anergia and depression and they tolerated this well. Care was coordinated with [facility] as Latuda and Provigil were continued. At discharge the patient stated that she hadn't picked up the Latuda 80 mg cap yet and that she also has her own supply of prn hyroxyzine 10 mg daily. A family session was held with a close friend/local support and safety plan was completed prior to discharge. She signed a 72 hr notice to request to withdrawal from treatment on first full day of treatment as remained focus on return to grad student responsibilities. Day of Discharge Assessment Today the patient voices readiness for discharge. They note improvement in mood and have consistently denied thoughts to harm self or others. Thoughts remain organized and they are improved from admission. There is no evidence of psychosis. They agree to take mediations as prescribed and keep follow-up appointments. She did not rescind her 72 hour notice and as she has safety plan, local support, and follow up this week with both Dr. Rosales and [facility] she is stable for discharge to outpatient level of care.There is no indication for involuntary commitment. Transition of Care Transition Of Care Record: was reviewed with the patient Advance Directives Advance Directives Information Provided: Yes Advance Directives: No Mental Health Advance Directive: No Advance Directives on File: No Living Will: No Power of Scrap Kettle Tender: No Advance Directives Reason:: Declines as Mental Health Visit. Risk Factors Assessment : Yes Do You Have Access To A Gun?: No Mental Health Diagnoses: Yes Substance Use Disorders: No Previous Attempt: No Previous Psychiatric Hospitalization: No Protective Factors Assessment Employed: No Tobacco Cessation at Discharge Tobacco Cessation Medication Prescribed at Discharge: Not Applicable/Non-Smoker Total Time Total Time Spent: Greater Than 30 Minutes Total Time Includes: Examination of the patient, Discharge Planning and Medication Reconciliation Discharge Data Lab Results 06/18/21 06/18/21 06/18/21 16:37 16:40 16:40 WBC RBC Hgb Hct MCV MCH MCHC RDW Std Deviation RDW Coeff of Ina Plt Count MPV Immature Gran % (Auto) Neut % (Auto) Lymph % (Auto) Burt % (Auto) Eos % (Auto) Baso % (Auto) Neut # (Auto) Lymph # (Auto) Burt # (Auto) Eos # (Auto) Baso # (Auto) Immature Gran # (Auto) Sodium Potassium Chloride Carbon Dioxide Anion Gap BUN Creatinine Est Cr Clr Drug Dosing Est GFR ( Amer) Est GFR (Non-Af Amer) BUN/Creatinine Ratio Glucose Fasting Glucose Calcium Total Bilirubin AST ALT Alkaline Phosphatase Total Protein Albumin Globulin Albumin/Globulin Ratio Triglycerides Cholesterol LDL Cholesterol, Calc VLDL Cholesterol, Calc HDL Cholesterol Cholesterol/HDL Ratio TSH HCG, Qual Urine Color Dark Yellow Urine Appearance Cloudy A Urine pH 6.0 Ur Specific [place] 1.026 Urine Protein Trace H Urine Glucose (UA) Negative Urine Ketones 1+ H Urine Blood Negative Urine Nitrite Negative Urine Bilirubin Negative Urine Urobilinogen Negative Ur Leukocyte Esterase Negative Urine WBC (Auto) 1-5 Urine RBC (Auto) 5-10 H U Hyaline Cast (Auto) 5-10 H U Epithel Cells (Auto) >30 H Urine Bacteria (Auto) Negative Salicylates Urine Opiates Screen Neg Ur Methadone, Qual Neg Acetaminophen Urine Barbiturates Neg Ur Phencyclidine (PCP) Neg U Amphetamin/Meth Scrn Neg MDMA (Ecstasy) Screen Neg U Benzodiazepines Scrn Neg Ur Cocaine Metabolite Neg U Marijuana (THC) Screen Neg Ethyl Alcohol mg/dL SARS-CoV-2, RNA, NAAT NEGATIVE 06/18/21 06/18/21 06/18/21 16:50 16:50 16:50 WBC 8.27 RBC 3.97 L Hgb 12.7 Hct 38.1 MCV 96.0 MCH 32.0 MCHC 33.3 RDW Std Deviation 45.9 RDW Coeff of Ina 13.1 Plt Count 337 MPV 8.9 Immature Gran % (Auto) 0.1 Neut % (Auto) 67.5 Lymph % (Auto) 22.2 Burt % (Auto) 7.9 Eos % (Auto) 2.1 Baso % (Auto) 0.2 Neut # (Auto) 5.58 Lymph # (Auto) 1.84 Burt # (Auto) 0.65 H Eos # (Auto) 0.17 Baso # (Auto) 0.02 Immature Gran # (Auto) 0.01 Sodium 139 Potassium 4.2 Chloride 110 H Carbon Dioxide 26 Anion Gap 3.0 BUN 10 Creatinine 0.85 Est Cr Clr Drug Dosing 106.6 Est GFR ( Amer) 106.6 Est GFR (Non-Af Amer) 91.9 BUN/Creatinine Ratio 12.3 Glucose 87 Fasting Glucose Calcium 8.8 Total Bilirubin 0.3 AST 8 L ALT 22 Alkaline Phosphatase 51 Total Protein 7.3 Albumin 3.8 Globulin 3.5 Albumin/Globulin Ratio 1.1 Triglycerides Cholesterol LDL Cholesterol, Calc VLDL Cholesterol, Calc HDL Cholesterol Cholesterol/HDL Ratio TSH 0.484 HCG, Qual Urine Color Urine Appearance Urine pH Ur Specific [place] Urine Protein Urine Glucose (UA) Urine Ketones Urine Blood Urine Nitrite Urine Bilirubin Urine Urobilinogen Ur Leukocyte Esterase Urine WBC (Auto) Urine RBC (Auto) U Hyaline Cast (Auto) U Epithel Cells (Auto) Urine Bacteria (Auto) Salicylates < 1.7 L Urine Opiates Screen Ur Methadone, Qual Acetaminophen < 2 L Urine Barbiturates Ur Phencyclidine (PCP) U Amphetamin/Meth Scrn MDMA (Ecstasy) Screen U Benzodiazepines Scrn Ur Cocaine Metabolite U Marijuana (THC) Screen Ethyl Alcohol mg/dL SARS-CoV-2, RNA, NAAT 06/18/21 06/18/21 06/20/21 16:50 16:50 08:58 WBC RBC Hgb Hct MCV MCH MCHC RDW Std Deviation RDW Coeff of Ina Plt Count MPV Immature Gran % (Auto) Neut % (Auto) Lymph % (Auto) Burt % (Auto) Eos % (Auto) Baso % (Auto) Neut # (Auto) Lymph # (Auto) Burt # (Auto) Eos # (Auto) Baso # (Auto) Immature Gran # (Auto) Sodium Potassium Chloride Carbon Dioxide Anion Gap BUN Creatinine Est Cr Clr Drug Dosing Est GFR ( Amer) Est GFR (Non-Af Amer) BUN/Creatinine Ratio Glucose Fasting Glucose 81 Calcium Total Bilirubin AST ALT Alkaline Phosphatase Total Protein Albumin Globulin Albumin/Globulin Ratio Triglycerides 82 Cholesterol 141 LDL Cholesterol, Calc 66 VLDL Cholesterol, Calc 16 HDL Cholesterol 59 Cholesterol/HDL Ratio 2 TSH HCG, Qual Negative Urine Color Urine Appearance Urine pH Ur Specific [place] Urine Protein Urine Glucose (UA) Urine Ketones Urine Blood Urine Nitrite Urine Bilirubin Urine Urobilinogen Ur Leukocyte Esterase Urine WBC (Auto) Urine RBC (Auto) U Hyaline Cast (Auto) U Epithel Cells (Auto) Urine Bacteria (Auto) Salicylates Urine Opiates Screen Ur Methadone, Qual Acetaminophen Urine Barbiturates Ur Phencyclidine (PCP) U Amphetamin/Meth Scrn MDMA (Ecstasy) Screen U Benzodiazepines Scrn Ur Cocaine Metabolite U Marijuana (THC) Screen Ethyl Alcohol mg/dL < 3.0 SARS-CoV-2, RNA, NAAT Hospital Course (1) Bipolar disorder: (2) Generalized anxiety disorder: 06/20/21: Continue Prozac trial 20 mg. discussed possible augmentation with light therapy and vitamin D. Reviewed fasting labs. 06/19/21: The patient was admitted to the [facility] ([facility] mental health unit) on q15 min checks (behavioral with suicide precautions) for safety. The patient will participate in group, recreational, and milieu therapies and will be offered additional individual and family sessions as clinically appropriate. Risks/benefits/alternatives reviewed re: her current medications. Patient aware of need for monitoring for TD and metabolic issues with Latuda. Fasting labs for the am. Will continue Modafinil for now, aware is off label medication but need to coordinate with outpatient provider and determine tolerability of Prozac. Reviewed that SSRI are generally weight neutral and chosen as her primary complaints are low energy. Given her level of anxiety and obsessiveness concern that Wellbutrin may be too activating. Patient asked several questions about 72 hour notice and agrees to continued hospitalization at this time. Mental Health & Subst Abuse Tx Psychiatrist Name of Psychiatrist: [facility]- Shelia Murphy Psychiatrist's Date of Appointment with Psychiatrist: 06/23/21 Time of Appointment with Psychiatrist: 2:30pm Psychiatric Appointment Comment: via phone Therapist Name of Therapist: Bobby Eaton- Adriana Rosales Therapist's Date of Therapist Appointment: 06/24/21 Time of Therapist Appointment: 4pm Therapy Appointment Comment: [address], [address], [place] [address] Computational Biologist Name of Computational Biologist: None Post Discharge Appointments Primary Care Physician Name Of Family Doctor: RUPERTO [facility] Date of Appointment with PCP: 06/29/21 Time of Appointment with PCP: 10am Provider Appointment Comment: Location [place], [place] Smoking Cessation Counseling Tobacco Cessation Medication Prescribed at Discharge: Not Applicable/Non-Smoker Other #2: Name of Aftercare Appointment: [facility] Phone Number of Aftercare Appointment: [phone] Contact Information Discharge Discharge Address: [address] Discharge Plan Discharge Items Patient Disposition: Home - Self-Care Reason For Visit: BIPOLAR DISORDER Discharge Diagnosis: bipolar disorder Condition on Discharge: Good Activity: Resume your previous activity Non-emergency contact: Primary Care Provider, Psychiatrist and Therapist Call non-emergency contact if: you have any medication questions and your symptoms worsen Follow-up/Referrals: Nancy Butts PA [Primary Care Provider] - Diet: Regular Addtl Attending Provider Instructions: SPECIAL CARE INSTRUCTIONS: 1. Follow through with your scheduled aftercare appointments. If unable to keep an appointment, please call to reschedule. 2. Take your medication only as prescribed. Medication should not be changed or stopped without the approval of your doctor. In the event of worsening symptoms or concerns about side effects, contact your doctor immediately. 3. Utilize new healthy coping skills, anger management skills, and stress management skills learned during your hospitalization. Journal feelings and process them with a support person. Identify stressors or situations that may result in relapse, deterioration or inappropriate behaviors and develop a plan to deal with those issues. 4. If your coping skills are ineffective and you are in crisis, contact your outpatient providers for direction. If unable to reach your providers, please call the [facility] CRISIS LINE AT , go to the [facility] walk-in center at [address] [place] [address] A, [place], or go to the closest Emergency Room. 5. Avoid alcohol and un-prescribed drugs. 6. You have been provided with the Mental Health Advance Directives Pamphlet for your review. 7. Your condition is stable for discharge to outpatient level of care, but recovery is an ongoing process. Ifthoughts to harm yourself or others return, follow the safety plan developed during your stay. Planning for a safe return home includes securing weapons. Our treatment team recommends weaponsbe removed from the home until your outpatient provider reassesses your progress. In rare cases where the items themselvescannot be removed, guns and ammunitionshould be secured separatelyand keys stored by a reliable personoutside of the home. If you were admitted on an involuntary commitment, the police or other legal authorities may be involved in this process. AFTERCARE APPOINTMENTS: * Please call your insurance company prior to your scheduled appointment to confirm your aftercare providers are covered. Take your insurance information to your appointments. WHO TO CALL AND WHEN: Medical Emergencies: For questions or emergencies related to your hospital stay, please contact the Inpatient Behavioral Health Unit at [phone]. A chief juvenile probation officer is on-call 05/02 for the Behavioral Health Unit for emergencies At any time you feel your situation is an emergency, you may also call 911 immediately. Pending Studies at Discharge: No Stand-Alone Forms: My [facility], Smoking Cessation Medications and DC Order Prescriptions: New hydroxyzine HCl 10 mg tablet 10 mg PO Q4H PRN (Reason: Anxiety) 1 Days RF: 0 fluoxetine 20 mg Capsule 20 mg PO QAM 30 Days Qty: 30 RF: 0 Continued modafinil 200 mg tablet 100 mg PO QAM RF: 0 Latuda 80 mg tablet 80 mg PO HS RF: 0 Discharge Orders: Discharge Order (Routine); Ordered 06/21/21 Ordered By: Claire Arroyo Admission Data Admit Date/Time: 06/18/21 18:29 Attending Provider: Claire Arroyo Admit Provider: Claire Arroyo Primary Care Provider: Nancy Butts Coding Level of Care Code 53103 D/C day mgmt > 30 min Diagnoses Bipolar disorder F31.32 Active/Remission status: currently active Current bipolar episode type: depressed Current episode severity: moderate Generalized anxiety disorder F41.1
== END 2021-06-21 15:25 | disposition home or self-care (01) | DRG 885 ==
LOC: ED 15:06 → MERGE 18:29 → 3S 18:29